=== PATIENT | female | born 1940 | race Caucasian/White ===

== ENCOUNTER → 2016-07-23 | Outpatient (CLI) | payer MEDICARE, OTHER | END | disposition home or self-care (01) | LOC: PCVCCLINIC 14:17 | PROVIDERS: ATTEND Internal Medicine Cardiovascular Disease | DX: I10 Essential (primary) hypertension (principal); E78.1 Pure hyperglyceridemia; R07.9 Chest pain, unspecified; E78.5 Hyperlipidemia, unspecified | CPT/HCPCS: 93005; G0463 ==

== ENCOUNTER → 2017-01-05 | Outpatient (CLI) | payer MEDICARE, OTHER ==
--- NOTE | 2017-01-05 13:28 | PCVCIMAG ---
APPROVED REPORT Exam: Stress Echocardiogram Indication: HTN, HLP, CHEST PAIN, PRE OP Patient Location: Echo lab Stress Nurse: Michaela Ponce RN Status: routine Ht: 5 ft 3 in HR: 107 bpm BP: 120/80 mmHg Rhythm: NSR Procedure The patient underwent an Exercise Stress Test using the Luciano Protocol. Blood pressure, heart rate, and EKG were monitored. An Echocardiogram was performed by hydraulic controls technician in four stages in quad fashion. At peak stress, four selected images were obtained and placed side by side with resting images for comparison. Stress Test Details Stress Test: Exercise stress testing was performed using a Luciano protocol. HR Resting HR: 107 bpmMax Heart Rate (APMHR): 142 bpm Max HR Achieved: 139 bpmTarget HR (85% APMHR): 120 bpm % of APMHR: 97 HR response to stress: Normal HR response to stress BP Resting BP: 120/80 mmHg Max BP: 160/88 mmHg ECG Resting ECG: Sinus Rhythm Stress ECG: Sinus Rhythm Clinical Exercise duration: 3 min 18 sec Highest Stage Achieved: Stage 1: 1.7 mph at 10% grade. Exercise capacity: 5.30 METs Overall Exercise Capacity for Age: Poor Pre-Stress Echo The resting Echocardiogram showed normal left ventricular contractility with an estimated Ejection Fraction of about 55-60%. Normal wall motion in all segments on baseline images. Post-Stress Echo The stress Echocardiogram showed normal left ventricular contractility with an estimated Ejection Fraction of about 60-65%. Normal augmentation of wall motion in all segments on post stress images. Conclusion Clinical Response: Non-ischemic Exercise Capacity: Below Average Stress ECG Response: Non-ischemic Stress Echo Images: Non-ischemic Other Information Study Quality: Good
== END | disposition home or self-care (01) ==
LOC: PCVCIMAG 10:35
PROVIDERS: ATTEND Internal Medicine Cardiovascular Disease
DX: Z01.810 Encounter for preprocedural cardiovascular examination (principal); R07.9 Chest pain, unspecified; I10 Essential (primary) hypertension; E78.5 Hyperlipidemia, unspecified
CPT/HCPCS: 93325; 93351